=== PATIENT | male | born 1990 | race Caucasian/White ===

== ENCOUNTER 2018-09-20 05:21 | Emergency (ER) | payer SELFPAY ==
[2018-09-20] MEDS ORDERED: HYOSCYAMINE SULFATE ODT 0.125 MG TAB.SUBL SL ONE (05:34)
[2018-09-20] MEDS ORDERED: ONDANSETRON HCL IV 4 MG/2 ML VIAL IVP ONE (05:34)
--- NOTE | 2018-09-20 05:38 | Emergency Department Record ---
History of Present Illness - General Chief Complaint: Abdominal Pain Stated Complaint: ABDOMINAL PAIN Time Seen by Provider: 09/20/18 05:33 Source: Patient Mode of Arrival: Ambulatory Limitations: No limitations - History of Present Illness Initial Comments: 28 yo male presents to ED for evaluation of nausea, vomiting, and loose stools that began 5.5 hours ago. Patient reports fever at home this morning, denies any recent ill contacts. Patient denies previous abdominal surgery but does report previous episodes of pancreatitis. MD Complaint: Abdominal pain Onset/Timin -: Minutes(s) Location: Diffuse Radiation: None Migration to: No migration Severity scale (1-10): 9 Quality: Cramping, Stabbing Consistency: Constant Improves With: Nothing Worsens With: Nothing Associated Symptoms: Diarrhea, Nausea, Vomiting - Related Data Previous Rx's Medication Instructions Recorded Hyoscyamine Sulfate [Levsin-Sl] 0.25 mg SL Q8H PRN #15 tab.subl 09/20/18 Metronidazole [Flagyl] 500 mg PO TID #29 tablet 09/20/18 Ondansetron [Zofran Odt] 4 mg PO Q8H PRN #15 tab.rapdis 09/20/18 Allergies Allergy/AdvReac Type Severity Reaction Status Date / Time ciprofloxacin [From Cipro] Allergy HIVES Verified 10/14/15 11:26 ciprofloxacin HCl Allergy HIVES Verified 10/14/15 11:26 [From Cipro] Travel Screening - Travel/Exposure Within Last 30 Days Have you traveled within the last 30 days?: No Review of Systems Constitutional: Denies: Chills, Fever, Malaise, Night sweats Eyes: Denies: Eye discharge, Eye pain ENT: Denies: Congestion, Ear pain, Epistaxis Respiratory: Denies: Cough, Dyspnea Cardiovascular: Denies: Chest pain, Dyspnea on exertion Endocrine: Denies: Fatigue, Heat or cold intolerance Gastrointestinal: Reports: Abdominal pain, Diarrhea, Nausea, Vomiting Genitourinary: Denies: Incontinence, Retention Musculoskeletal: Denies: Arthralgia, Back pain, Gout, Joint swelling Skin: Denies: Bruising, Change in color Neurological: Denies: Abnormal gait, Confusion, Headache, Seizure Psychiatric: Denies: Anxiety Hematological/Lymphatic: Denies: Anemia, Blood Clots Past Medical History - SOCIAL HISTORY Smoking Status: Light tobacco smoker (<10/day) Alcohol Use: None Drug Use: None - RESPIRATORY Hx Respiratory Disorders: No - CARDIOVASCULAR Hx Cardio Disorders: No - NEURO Hx Neuro Disorders: No - GI Hx GI Disorders: Yes Hx Pancreatitis: Yes - Hx Genitourinary Disorders: No - ENDOCRINE Hx Endocrine Disorders: No - MUSCULOSKELETAL Hx Musculoskeletal Disorders: No - PSYCH Hx Psych Problems: No - HEMATOLOGY/ONCOLOGY Hx Hematology/Oncology Disorders: No Family Medical History Any Significant Family History?: Yes Hx Cancer: Father Hx HTN: Mother Hx Kidney Disease: Father Physical Exam - General General Appearance: Alert, Oriented x3, Cooperative, Mild distress, Anxious Limitations: No limitations - Head Head exam: Atraumatic, Normocephalic, Normal inspection Head exam detail: negative: Abrasion, Contusion, Jeffries's sign, General tenderness, Hematoma, Laceration - Eye Eye exam: Normal appearance. negative: Conjunctival injection, Periorbital swelling, Periorbital tenderness, Scleral icterus - ENT Ear exam: negative: Auricular hematoma, Auricular trauma Nasal Exam: negative: Active bleeding, Discharge, Dried blood, Foreign body Mouth exam: negative: Drooling, Laceration, Muffled voice, Tongue elevation - Neck Neck exam: Normal inspection. negative: Meningismus, Tenderness - Respiratory Respiratory exam: Normal lung sounds bilaterally. negative: Rales, Respiratory distress, Rhonchi, Stridor - Cardiovascular Cardiovascular Exam: Regular rate, Normal rhythm, Normal heart sounds - GI/Abdominal GI/Abdominal exam: Soft, Tenderness (Mild diffuse TTP, no rebound, guarding, or peritoneal signs are present on examination.). negative: Rebound, Rigid - Rectal Rectal exam: Deferred - exam: Deferred - Extremities Extremities exam: Normal inspection. negative: Pedal edema, Tenderness - Back Back exam: Denies: CVA tenderness (R), CVA tenderness (L) - Neurological Neurological exam: Alert, Normal gait, Oriented X3 - Psychiatric Psychiatric exam: Normal affect, Normal mood - Skin Skin exam: Normal color. negative: Abrasion Type of lesion: negative: abrasion Course Vital Signs 09/20/18 05:27 Temperature 97.7 F Pulse Rate [ 66 Pulse Ox Probe] Respiratory 20 Rate Blood Pressure 126/74 [Left Arm] Pulse Ox 99 - Reevaluation(s) Reevaluation #1: 09/20/18 06:10 Laboratory studies were reviewed: WBC 16.9 with 87% Neutrophils Labs are otherwise grossly unremarkable for an acute process. Reevaluation #2: 09/20/18 06:35 Urinalysis was reviewed and appears grossly unremarkable for an acute process. Reevaluation #3: 09/20/18 07:02 Patient was reassessed and reports improvement in his pain symptoms following Toradol administration. CT Abdomen and Pelvis pending. Reevaluation #4: 09/20/18 07:18 CT Abdomen and pelvis: Bowel wall thickening of the left casa-colon c/w colitis No fat stranding present No free intraperitoneal air/fluid No loculated fluid collection. Patient was updated on all results, will initiate treatment with Flagyl, Zofran , and Levsin as directed (patient reports hives with quinolones). Patient and his are in agreement with the plan of care as discussed. Medical Decision Making - Lab Data Result diagrams: 09/20/18 05:30 09/20/18 05:30 Disposition Disposition: Discharge Clinical Impression: Nausea vomiting and diarrhea, Colitis Disposition: Home, Self-Care Condition: (2) Stable Instructions: Acute Nausea and Vomiting (ED) Additional Instructions: Return to ED if your symptoms worsen or if you have any concerns. Flagyl, Zofran, and Levsin as directed. Follow-up with your family doctor in 3-5 days as directed. Prescriptions: Hyoscyamine Sulfate [Levsin-Sl] 0.25 mg SL Q8H PRN #15 tab.subl PRN Reason: Abdominal Pain Metronidazole [Flagyl] 500 mg PO TID #29 tablet Ondansetron [Zofran Odt] 4 mg PO Q8H PRN #15 tab.rapdis PRN Reason: Nausea/Vomiting Forms: Patient Portal Access Time of Disposition: 07:21 Quality - Quality Measures Quality Measures: N/A - Blood Pressure Screening Does Patient Have Any of the Following: No Blood Pressure Classification: Normal BP Reading Systolic Measurement: 117 Diastolic Measurement: 64 Screening for High Blood Pressure: < Normal BP, F/U Not Required > [G8783]
[2018-09-20 05:43] LABS: BASO % 0.1 % (0-6); EOS % 1.5 % (0-6); HEMATOCRIT 47.4 % (42.0-52.0); HEMOGLOBIN 16.9 gm/dl (14.0-18.0); LYMPH % 2.6 % (16-45); MEAN CELL VOLUME 86.7 fl (81-97); MEAN CORPUSCULAR HEMOGLOBIN 30.9 pg (27-33); MEAN CORPUSCULAR HGB CONC 35.7 g/dl (32-36); MEAN PLATELET VOLUME 8.9 fl (7.4-10.4); MONO % 5.2 % (0-9); PLATELET COUNT 330 K/uL (130-400); RED BLOOD COUNT 5.47 M/uL (4.40-5.70); RED CELL DISTRIBUTION WIDTH 12.8 % (11.5-14.5); WHITE BLOOD COUNT W/O DIFF 16.9 K/uL (4.2-12.2)
[2018-09-20] MEDS ORDERED: 0.9 % SODIUM CHLORIDE 1000ML 1,000 ML IV SCH (05:45)
[2018-09-20 06:03] LABS: BLOOD UREA NITROGEN 20 mg/dL (6-20); CREATININE 0.8 mg/dL (0.7-1.2); EST GLOMERULAR FILTRATION RATE > 60 mL/min; TOTAL PROTEIN 7.7 g/dL (6.6-8.7)
[2018-09-20 06:05] LABS: GLUCOSE,RANDOM 105 mg/dL (74-109)
[2018-09-20 06:08] LABS: ALB/GLOB RATIO 1.8 (1.1-1.8); ALBUMIN 4.9 g/dL (4.0-5.0); ALKALINE PHOSPHATASE 97 U/L (40-129); ALT/SGPT 24 U/L (<41); AST/SGOT 28 U/L (10.0-50.0); LIPASE 57 U/L (13-60)
[2018-09-20] MEDS ORDERED: KETOROLAC 30 MG/ML VIAL IVP ONE (06:20)
[2018-09-20 06:30] LABS: URINE APPEARANCE CLEAR; URINE BILIRUBIN NEGATIVE (NEGATIVE); URINE BLOOD NEGATIVE (NEGATIVE); URINE COLOR YELLOW; URINE GLUCOSE (UA) NEGATIVE (NEGATIVE); URINE KETONE NEGATIVE (NEGATIVE); URINE LEUKOCYTE ESTERASE NEGATIVE (NEGATIVE); URINE NITRITE NEGATIVE (NEGATIVE); URINE PROTEIN NEGATIVE (NEGATIVE); URINE UROBILINOGEN 0.2 E.U./dL (0.20 - 1.00)
[2018-09-20] MEDS ORDERED: METRONIDAZOLE 250 MG TABLET PO ONE (07:17)
--- NOTE | 2018-09-20 09:41 | CT SCAN REPORT ---
DATE: 09/20/2018. EXAM: CT OF THE ABDOMEN AND PELVIS WITH CONTRAST. HISTORY: Severe abdominal pain. TECHNIQUE: Sequential axial images were obtained from the diaphragms through the ischiorectal fossa after the intravenous administration of 100 mL of Omnipaque 300 contrast material. COMPARISON: None. FINDINGS: The visualized lung bases appear normal. There are a few subcentimeter, low-density lesions in the liver. The gallbladder, pancreas, and spleen appear normal. The adrenal glands and kidneys appear normal. The small bowel appears normal. The appendix is visualized and appears normal. The colon appears normal. The urinary bladder appears normal. The osseous structures are normal. IMPRESSION: 1. NO ACUTE ABDOMINAL OR PELVIC DISEASE PROCESS. 2. SMALL HYPODENSITIES IN THE RIGHT LOBE OF THE LIVER MEASURING LESS THAN 10 MM. THESE ARE TOO SMALL TO FURTHER CHARACTERIZE; HOWEVER LIKELY REPRESENT BENIGN CYSTS OR HEMANGIOMAS. JOB NUMBER: [id number] MTDD
== END 2018-09-20 07:32 | disposition home or self-care (01) ==
LOC: ER 05:21
DX: K52.9 Noninfective gastroenteritis and colitis, unspecified (principal); R11.2 Nausea with vomiting, unspecified; R10.84 Generalized abdominal pain; F17.210 Nicotine dependence, cigarettes, uncomplicated
CPT/HCPCS: 99284 ×2; 96374; 96375; 96361; 83690; 80053; 81003; 85027; 74177; G0480; Q9967; J1980; J1885; J2405; 80320; J7030

== ENCOUNTER 2018-09-20 11:13 | Emergency (ER) | payer SELFPAY ==
[2018-09-20] MEDS ORDERED: 0.9 % SODIUM CHLORIDE 1,000 ML BAG IV ONE (11:58)
[2018-09-20] MEDS ORDERED: KETOROLAC 30 MG/ML VIAL IVP ONE (11:58)
[2018-09-20] MEDS ORDERED: PROMETHAZINE HCL 25 MG/ML VIAL IV ONE (11:58)
[2018-09-20 12:17] LABS: HEMATOCRIT 46.7 % (42.0-52.0); HEMOGLOBIN 16.3 gm/dl (14.0-18.0); MEAN CELL VOLUME 86.6 fl (81-97); MEAN CORPUSCULAR HEMOGLOBIN 30.2 pg (27-33); MEAN CORPUSCULAR HGB CONC 34.9 g/dl (32-36); PLATELET COUNT 311 K/uL (130-400); RED BLOOD COUNT 5.39 M/uL (4.40-5.70); RED CELL DISTRIBUTION WIDTH 12.7 % (11.5-14.5); WHITE BLOOD COUNT W/O DIFF 14.4 K/uL (4.2-12.2)
[2018-09-20 12:23] LABS: PLATELET ESTIMATE NORMAL (NORMAL)
[2018-09-20 12:31] LABS: TOTAL PROTEIN 7.5 g/dL (6.6-8.7)
[2018-09-20 12:33] LABS: AMYLASE 66 U/L (28-100)
[2018-09-20 12:36] LABS: ALBUMIN 4.7 g/dL (4.0-5.0); ALKALINE PHOSPHATASE 96 U/L (40-129); ALT/SGPT 19 U/L (<41); AST/SGOT 23 U/L (10.0-50.0); BILIRUBIN,DIRECT < 0.2 mg/dL (0-0.3); LIPASE 31 U/L (13-60)
[2018-09-20] MEDS ORDERED: AMPICILLIN SODIUM/SULBACTAM NA 3 G in 0.9 % SODIUM CHLORIDE 100ML 100 ML IVPB ONE (13:19)
[2018-09-20] MEDS ORDERED: HYDROMORPHONE HCL 2 MG/ML VIAL IVP ONE (13:33)
[2018-09-20 13:52] LABS: BLOOD UREA NITROGEN 19 mg/dL (6-20); CREATININE 0.8 mg/dL (0.7-1.2); EST GLOMERULAR FILTRATION RATE > 60 mL/min
[2018-09-20 13:55] LABS: GLUCOSE,RANDOM 104 mg/dL (74-109)
--- NOTE | 2018-09-20 14:36 | Emergency Department Record ---
History of Present Illness - General Chief Complaint: Recheck - Other Stated Complaint: RECHECK ABD PAIN Time Seen by Provider: 09/20/18 11:49 Source: Patient Mode of arrival: Ambulatory Limitations: No limitations - History of Present Illness Initial Comments: pt returns for his ap saying its unbearable and that he is throwing up his medication. he was here 4 hrs ago. Complaint: Other -: Hour(s) Returns Today for: Persistent/worsening pain related to initial visit Symptoms Since Prior Visit: Worsening pain Associated Symptoms: Abdominal pain, Fever, Nausea - Related Data Previous Rx's Medication Instructions Recorded Amoxicillin/Potassium Clav 1 each PO BID #14 tablet 09/20/18 [Augmentin 875Mg/125Mg] Hyoscyamine Sulfate [Levsin-Sl] 0.25 mg SL Q8H PRN #15 tab.subl 09/20/18 Metronidazole [Flagyl] 500 mg PO TID #29 tablet 09/20/18 Ondansetron [Zofran Odt] 4 mg PO Q8H PRN #15 tab.rapdis 09/20/18 Promethazine HCl [Phenergan] 25 mg RC Q12HR PRN #5 supp.rect 09/20/18 Allergies Allergy/AdvReac Type Severity Reaction Status Date / Time ciprofloxacin [From Cipro] Allergy HIVES Verified 09/20/18 11:44 ciprofloxacin HCl Allergy HIVES Verified 09/20/18 11:44 [From Cipro] Travel Screening - Travel/Exposure Within Last 30 Days Have you traveled within the last 30 days?: No Review of Systems Reviewed: No additional complaints except as noted below Constitutional: Reports: As per HPI. Denies: Chills, Fever, Malaise, Night sweats, Weakness, Weight change Eyes: Reports: As per HPI. Denies: Eye discharge, Eye pain, Photophobia, Vision change ENT: Reports: As per HPI. Denies: Congestion, Dental pain, Ear pain, Epistaxis , Hearing loss, Throat pain Respiratory: Reports: As per HPI. Denies: Cough, Dyspnea, Hemoptysis, Stridor, Wheezes Cardiovascular: Reports: As per HPI. Denies: Arrhythmia, Chest pain, Dyspnea on exertion, Edema, Murmurs, Orthopnea, Palpitations, Paroxysmal nocturnal dyspnea, Rheumatic Fever, Syncope Endocrine: Reports: As per HPI. Denies: Fatigue, Heat or cold intolerance, Polydipsia, Polyuria Gastrointestinal: Reports: As per HPI. Denies: Abdominal pain, Constipation, Diarrhea, Hematemesis, Hematochezia, Melena, Nausea, Vomiting Genitourinary: Reports: As per HPI. Denies: Dysuria, Frequency, Hematuria, Incontinence, Retention, Testicular pain, Testicular mass, Urgency Musculoskeletal: Reports: As per HPI. Denies: Arthralgia, Back pain, Gout, Joint swelling, Myalgia, Neck pain Skin: Reports: As per HPI. Denies: Bruising, Change in color, Change in hair/ nails, Lesions, Pruritus, Rash Neurological: Reports: As per HPI. Denies: Abnormal gait, Confusion, Headache, Numbness, Paresthesias, Seizure, Tingling, Tremors, Vertigo, Weakness Psychiatric: Reports: As per HPI. Denies: Anxiety, Auditory hallucinations, Depression, Homicidal thoughts, Suicidal thoughts, Visual hallucinations Hematological/Lymphatic: Reports: As per HPI. Denies: Anemia, Blood Clots, Easy bleeding, Easy bruising, Swollen glands Past Medical History - SOCIAL HISTORY Smoking Status: Light tobacco smoker (<10/day) Alcohol Use: None Drug Use: None - RESPIRATORY Hx Respiratory Disorders: No - CARDIOVASCULAR Hx Cardio Disorders: No - NEURO Hx Neuro Disorders: No - GI Hx GI Disorders: Yes Hx Pancreatitis: Yes - Hx Genitourinary Disorders: No - ENDOCRINE Hx Endocrine Disorders: No - MUSCULOSKELETAL Hx Musculoskeletal Disorders: No - PSYCH Hx Psych Problems: No - HEMATOLOGY/ONCOLOGY Hx Hematology/Oncology Disorders: No Family Medical History Any Significant Family History?: Yes Hx Cancer: Father Hx HTN: Mother Hx Kidney Disease: Father Physical Exam - General General Appearance: Alert, Oriented x3, Cooperative, Mild distress - Head Head exam: Normal inspection - Eye Eye exam: Normal appearance, PERRL, EOMI Pupils: Normal accommodation - ENT ENT exam: Normal exam, Mucous membranes moist, Normal external ear exam, Normal orophraynx Ear exam: Normal external inspection. negative: External canal tenderness Nasal Exam: Normal inspection. negative: Discharge, Sinus tenderness Mouth exam: Normal external inspection, Tongue normal Teeth exam: Normal inspection. negative: Dental caries Throat exam: Normal inspection. negative: Tonsillar erythema, Tonsillar exudate - Neck Neck exam: Normal inspection, Full ROM. negative: Tenderness - Respiratory Respiratory exam: Normal lung sounds bilaterally. negative: Respiratory distress - Cardiovascular Cardiovascular Exam: Regular rate, Normal rhythm, Normal heart sounds - GI/Abdominal GI/Abdominal exam: Soft, Normal bowel sounds, Tenderness (diffusely) - Rectal Rectal exam: Deferred - exam: Deferred - Extremities Extremities exam: Normal inspection, Full ROM, Normal capillary refill. negative: Tenderness - Back Back exam: Reports: Normal inspection, Full ROM. Denies: Muscle spasm, Rash noted, Tenderness - Neurological Neurological exam: Alert, CN II-XII intact, Normal gait, Oriented X3 - Psychiatric Psychiatric exam: Normal affect, Normal mood - Skin Skin exam: Dry, Intact, Normal color, Warm Course Vital Signs 09/20/18 09/20/18 11:47 13:41 Temperature 98.1 F 99.0 F Pulse Rate [ 79 85 Pulse Ox Probe] Respiratory 18 18 Rate Blood Pressure 98/60 [Left Arm] Blood Pressure 110/69 [Right Arm] Pulse Ox 100 95 - Reevaluation(s) Reevaluation #1: 09/20/18 14:35 xrays neg. pt feels better Reevaluation #2: 09/20/18 14:36 pts wbc have decreased since earlier visit Medical Decision Making - Lab Data Result diagrams: 09/20/18 12:10 09/20/18 12:00 Lab Results 09/20/18 09/20/18 09/20/18 Range/Units 12:00 12:10 12:10 WBC 14.4 H (4.2-12.2) K/uL RBC 5.39 (4.40-5.70) M/uL Hgb 16.3 (14.0-18.0) gm/dl Hct 46.7 (42.0-52.0) % MCV 86.6 (81-97) fl MCH 30.2 (27-33) pg MCHC 34.9 (32-36) g/dl RDW 12.7 (11.5-14.5) % Plt Count 311 (130-400) K/uL MPV 9.0 (7.4-10.4) fl Neutrophils % 86.0 H (47-80) % Band Neutrophils % 7.0 H (0-5) % Eosinophils % Not Reportable Basophils % Not Reportable Lymphocytes 5.0 L (16-45) % Monocytes 1.0 (0-9) % Platelet Estimate Normal (NORMAL) RBC Morphology Normal Eosinophil Count 1.0 (0-6) % Sodium 144 (136-145) mmol/L Potassium 4.0 (3.4-4.5) mmol/L Chloride 103 (98-107) mmol/L Carbon Dioxide 24.0 (22-29) mmol/L Anion Gap 17.0 H (7-16) BUN 19 (6-20) mg/dL Creatinine 0.8 (0.7-1.2) mg/dL Estimated GFR > 60 mL/min Random Glucose 104 (74-109) mg/dL Lactic Acid (0.5-2.2) mmol/L Calcium 9.7 (8.6-10.0) mg/dL Total Bilirubin 0.80 (0.2-1.0) mg/dL Direct Bilirubin < 0.2 (0-0.3) mg/dL AST 23 (10.0-50.0) U/L ALT 19 (<41) U/L Alkaline Phosphatase 96 (40-129) U/L Total Protein 7.5 (6.6-8.7) g/dL Albumin 4.7 (4.0-5.0) g/dL Amylase 66 (28-100) U/L Lipase 31 (13-60) U/L 09/20/ Range/Units 12:10 WBC (4.2-12.2) K/uL RBC (4.40-5.70) M/uL Hgb (14.0-18.0) gm/dl Hct (42.0-52.0) % MCV (81-97) fl MCH (27-33) pg MCHC (32-36) g/dl RDW (11.5-14.5) % Plt Count (130-400) K/uL MPV (7.4-10.4) fl Neutrophils % (47-80) % Band Neutrophils % (0-5) % Eosinophils % Basophils % Lymphocytes (16-45) % Monocytes (0-9) % Platelet Estimate (NORMAL) RBC Morphology Eosinophil Count (0-6) % Sodium (136-145) mmol/L Potassium (3.4-4.5) mmol/L Chloride (98-107) mmol/L Carbon Dioxide (22-29) mmol/L Anion Gap (7-16) BUN (6-20) mg/dL Creatinine (0.7-1.2) mg/dL Estimated GFR mL/min Random Glucose (74-109) mg/dL Lactic Acid 1.6 (0.5-2.2) mmol/L Calcium (8.6-10.0) mg/dL Total Bilirubin (0.2-1.0) mg/dL Direct Bilirubin (0-0.3) mg/dL AST (10.0-50.0) U/L ALT (<41) U/L Alkaline Phosphatase (40-129) U/L Total Protein (6.6-8.7) g/dL Albumin (4.0-5.0) g/dL Amylase (28-100) U/L Lipase (13-60) U/L Disposition Disposition: Discharge Clinical Impression: Colitis Disposition: Home, Self-Care Condition: (1) Good Instructions: Colitis (ED) Additional Instructions: follow up with family doctor. return sooner if worse. stop flagyl. Prescriptions: Promethazine HCl [Phenergan] 25 mg RC Q12HR PRN #5 supp.rect PRN Reason: Nausea/Vomiting Amoxicillin/Potassium Clav [Augmentin 875Mg/125Mg] 1 each PO BID #14 tablet Quality - Quality Measures Quality Measures: N/A - Blood Pressure Screening Does Patient Have Any of the Following: No Blood Pressure Classification: Normal BP Reading Systolic Measurement: 98 Diastolic Measurement: 60 Screening for High Blood Pressure: < Normal BP, F/U Not Required > [G8783]
--- NOTE | 2018-09-20 16:30 | RADIOLOGY REPORT ---
DATE: 09/20/2018. EXAM: ACUTE ABDOMINAL SERIES. HISTORY: ABDOMINAL PAIN. TECHNIQUE: Single PA view of the chest and supine and upright views of the abdomen were performed. FINDINGS: Heart size is normal. Lung clements are clear. There is a nonobstructive bowel gas pattern. No evidence of free air. The osseous structures are normal IMPRESSION: NEGATIVE ACUTE ABDOMINAL SERIES. JOB NUMBER: [id number] MTDD
== END 2018-09-20 14:50 | disposition home or self-care (01) ==
LOC: ER 11:13
DX: K52.9 Noninfective gastroenteritis and colitis, unspecified (principal); R10.84 Generalized abdominal pain; R11.0 Nausea; F17.210 Nicotine dependence, cigarettes, uncomplicated
CPT/HCPCS: 99284 ×2; 96365; 96375; 83605; 82150; 83690; 80076; 80048; 85027; 74022; J0295; J1885; J1170; J2550; J7030

== ENCOUNTER 2018-12-31 02:01 | Emergency (ER) | payer SELFPAY ==
[2018-12-31] MEDS ORDERED: ONDANSETRON HCL IV 4 MG/2 ML VIAL IV ONE (02:25)
[2018-12-31] MEDS ORDERED: 0.9 % SODIUM CHLORIDE 1,000 ML BAG IV ONE (02:25)
[2018-12-31] MEDS ORDERED: KETOROLAC 30 MG/ML VIAL IVP ONE (02:25)
[2018-12-31 02:28] LABS: HEMATOCRIT 44.4 % (42.0-52.0); HEMOGLOBIN 15.7 gm/dl (14.0-18.0); MEAN CELL VOLUME 87.1 fl (81-97); MEAN CORPUSCULAR HEMOGLOBIN 30.8 pg (27-33); MEAN CORPUSCULAR HGB CONC 35.4 g/dl (32-36); MEAN PLATELET VOLUME 9.2 fl (7.4-10.4); PLATELET COUNT 347 K/uL (130-400); RED CELL DISTRIBUTION WIDTH 12.6 % (11.5-14.5); WHITE BLOOD COUNT W/O DIFF 15.7 K/uL (4.2-12.2)
[2018-12-31 02:30] LABS: BLOOD UREA NITROGEN 16 mg/dL (6-20); CREATININE 0.8 mg/dL (0.7-1.2); EST GLOMERULAR FILTRATION RATE > 60 mL/min
[2018-12-31 02:31] LABS: LIPASE 17 U/L (13-60); TOTAL PROTEIN 7.4 g/dL (6.6-8.7)
--- NOTE | 2018-12-31 02:32 | Emergency Department Record ---
History of Present Illness - General Chief Complaint: Abdominal Pain Stated Complaint: ABDOMINAL PAIN Time Seen by Provider: 12/31/18 02:15 Source: Patient Mode of Arrival: Ambulatory Limitations: No limitations - History of Present Illness Initial Comments: pt enma llq ap for a few hours unlike anything hes had before. he has nausea MD Complaint: Abdominal pain Onset/Timin -: Hour(s) Location: Periumbilical Radiation: LUQ Severity scale (1-10): 8 Quality: Cramping Consistency: Constant Improves With: Nothing Worsens With: Nothing Associated Symptoms: Nausea - Related Data Home Medications Medication Instructions Recorded Confirmed Last Taken No Home Med [NO HOME MEDS] 12/31/18 12/31/18 Unknown Allergies Allergy/AdvReac Type Severity Reaction Status Date / Time ciprofloxacin [From Cipro] Allergy HIVES Verified 09/20/18 11:44 ciprofloxacin HCl Allergy HIVES Verified 09/20/18 11:44 [From Cipro] Travel Screening - Travel/Exposure Within Last 30 Days Have you traveled within the last 30 days?: No - Travel Symptoms Symptom Screening: None Review of Systems Reviewed: No additional complaints except as noted below Constitutional: Reports: As per HPI. Denies: Chills, Fever, Malaise, Night sweats, Weakness, Weight change Eyes: Reports: As per HPI. Denies: Eye discharge, Eye pain, Photophobia, Vision change ENT: Reports: As per HPI. Denies: Congestion, Dental pain, Ear pain, Epistaxis , Hearing loss, Throat pain Respiratory: Reports: As per HPI. Denies: Cough, Dyspnea, Hemoptysis, Stridor, Wheezes Cardiovascular: Reports: As per HPI. Denies: Arrhythmia, Chest pain, Dyspnea on exertion, Edema, Murmurs, Orthopnea, Palpitations, Paroxysmal nocturnal dyspnea, Rheumatic Fever, Syncope Endocrine: Reports: As per HPI. Denies: Fatigue, Heat or cold intolerance, Polydipsia, Polyuria Gastrointestinal: Reports: As per HPI. Denies: Abdominal pain, Constipation, Diarrhea, Hematemesis, Hematochezia, Melena, Nausea, Vomiting Genitourinary: Reports: As per HPI. Denies: Dysuria, Frequency, Hematuria, Incontinence, Retention, Testicular pain, Testicular mass, Urgency Musculoskeletal: Reports: As per HPI. Denies: Arthralgia, Back pain, Gout, Joint swelling, Myalgia, Neck pain Skin: Reports: As per HPI. Denies: Bruising, Change in color, Change in hair/ nails, Lesions, Pruritus, Rash Neurological: Reports: As per HPI. Denies: Abnormal gait, Confusion, Headache, Numbness, Paresthesias, Seizure, Tingling, Tremors, Vertigo, Weakness Psychiatric: Reports: As per HPI. Denies: Anxiety, Auditory hallucinations, Depression, Homicidal thoughts, Suicidal thoughts, Visual hallucinations Hematological/Lymphatic: Reports: As per HPI. Denies: Anemia, Blood Clots, Easy bleeding, Easy bruising, Swollen glands Past Medical History - SOCIAL HISTORY Smoking Status: Light tobacco smoker (<10/day) - RESPIRATORY Hx Respiratory Disorders: No - CARDIOVASCULAR Hx Cardio Disorders: No - NEURO Hx Neuro Disorders: No - GI Hx GI Disorders: Yes Hx Pancreatitis: Yes - Hx Genitourinary Disorders: No - ENDOCRINE Hx Endocrine Disorders: No - MUSCULOSKELETAL Hx Musculoskeletal Disorders: No - PSYCH Hx Psych Problems: No - HEMATOLOGY/ONCOLOGY Hx Hematology/Oncology Disorders: No Family Medical History Any Significant Family History?: Yes Hx Cancer: Father Hx HTN: Mother Hx Kidney Disease: Father Physical Exam - General General Appearance: Alert, Oriented x3, Cooperative, Mild distress - Head Head exam: Normal inspection - Eye Eye exam: Normal appearance, PERRL, EOMI Pupils: Normal accommodation - ENT ENT exam: Normal exam, Mucous membranes moist, Normal external ear exam, Normal orophraynx Ear exam: Normal external inspection. negative: External canal tenderness Nasal Exam: Normal inspection. negative: Discharge, Sinus tenderness Mouth exam: Normal external inspection, Tongue normal Teeth exam: Normal inspection. negative: Dental caries Throat exam: Normal inspection. negative: Tonsillar erythema, Tonsillar exudate - Neck Neck exam: Normal inspection, Full ROM. negative: Tenderness - Respiratory Respiratory exam: Normal lung sounds bilaterally. negative: Respiratory distress - Cardiovascular Cardiovascular Exam: Regular rate, Normal rhythm, Normal heart sounds - GI/Abdominal GI/Abdominal exam: Soft, Normal bowel sounds, Tenderness - Rectal Rectal exam: Deferred - exam: Deferred - Extremities Extremities exam: Normal inspection, Full ROM, Normal capillary refill. negative: Tenderness - Back Back exam: Reports: Normal inspection, Full ROM. Denies: Muscle spasm, Rash noted, Tenderness - Neurological Neurological exam: Alert, Normal gait, Oriented X3, Reflexes normal - Psychiatric Psychiatric exam: Normal affect, Normal mood - Skin Skin exam: Dry, Intact, Normal color, Warm Course Vital Signs 12/31/18 02:06 Temperature 98.8 F Pulse Rate [ 71 Pulse Ox Probe] Respiratory 20 Rate Blood Pressure 111/74 [Left Arm] Pulse Ox 98 Medical Decision Making - Lab Data Result diagrams: 12/31/18 02:25 12/31/18 02:25 Lab Results 12/31/18 Range/Units 02:25 WBC 15.7 H (4.2-12.2) K/uL RBC 5.10 (4.40-5.70) M/uL Hgb 15.7 (14.0-18.0) gm/dl Hct 44.4 (42.0-52.0) % MCV 87.1 (81-97) fl MCH 30.8 (27-33) pg MCHC 35.4 (32-36) g/dl RDW 12.6 (11.5-14.5) % Plt Count 347 (130-400) K/uL MPV 9.2 (7.4-10.4) fl Neutrophils % 80.0 (47-80) % Band Neutrophils % 0.0 (0-5) % Eosinophils % Not Reportable Basophils % Not Reportable Lymphocytes 10.0 L (16-45) % Monocytes 10.0 H (0-9) % Basophils 0.0 (0-6) % Eosinophil Count 0.0 (0-6) % Disposition Disposition: Transfer Clinical Impression: Diverticulitis large intestine Qualifiers: Diverticulitis bleeding: without bleeding Diverticulitis complication: without perforation or abscess Qualified Code(s): K57.32 - Diverticulitis of large intestine without perforation or abscess without bleeding Disposition: Acute Care Hospital Transfer Transfer To: [facility] Reason For Transfer: needs surgeon Accepting Physician: dr blandon Time Discussed w/Accepting Physician: 05:14 Forms: Patient Portal Access Quality - Quality Measures Quality Measures: N/A - Blood Pressure Screening Does Patient Have Any of the Following: No Blood Pressure Classification: Normal BP Reading Systolic Measurement: 100 Diastolic Measurement: 56 Screening for High Blood Pressure: < Normal BP, F/U Not Required > [G8783]
[2018-12-31 02:34] LABS: GLUCOSE,RANDOM 108 mg/dL (74-109)
[2018-12-31 02:36] LABS: ALBUMIN 4.8 g/dL (4.0-5.0); ALKALINE PHOSPHATASE 94 U/L (40-129); ALT/SGPT 12 U/L (<41); AST/SGOT 17 U/L (10.0-50.0); BILIRUBIN,DIRECT < 0.2 mg/dL (0-0.3)
[2018-12-31] MEDS ORDERED: AMPICILLIN SODIUM/SULBACTAM NA 3 G in 0.9 % SODIUM CHLORIDE 100ML 100 ML IVPB ONE (04:07)
[2018-12-31] MEDS ORDERED: HYDROMORPHONE HCL 2 MG/ML VIAL IVP ONE (04:09)
[2018-12-31] MEDS ORDERED: ONDANSETRON HCL IV 4 MG/2 ML VIAL IVP ONE (05:30)
--- NOTE | 2018-12-31 21:41 | CT SCAN REPORT ---
EXAM: CT SCAN ABDOMEN/PELVIS WO CONTRAST HISTORY: LEFT LOWER QUADRANT PAIN. TECHNIQUE: Sequential axial images were obtained from the diaphragms through the ischiorectal fossa without intravenous contrast administration. FINDINGS: The visualized lung bases appear normal. The non-opacified liver, gallbladder, pancreas, and spleen appear normal. The adrenal glands appear normal. There are nonobstructing calculi in the right kidney measuring 5 mm in maximal dimension. No calculi are appreciated along the course of the ureter. Urinary bladder appears normal. The small bowel appears normal. There is a short segment of abnormal wall thickening and adjacent inflammatory change. Findings are consistent with diverticulitis in the descending colon. No loculated fluid collection to suggest abscess. The osseous structures appear normal. IMPRESSION: 1. ACUTE DIVERTICULITIS OF THE DESCENDING COLON. 2. THERE IS A NON-OBSTRUCTING CALCULUS IN THE RIGHT KIDNEY MEASURING 5 MM. 3. THE REMAINDER OF THE EXAMINATION IS UNREMARKABLE. JOB NUMBER: [id number] MTDD
== END 2018-12-31 05:39 | disposition short-term general hospital (02) ==
LOC: ER 02:01
DX: K57.32 Diverticulitis of large intestine without perforation or abscess without bleeding (principal); R11.0 Nausea; F17.210 Nicotine dependence, cigarettes, uncomplicated
CPT/HCPCS: 99285 ×2; 96376; 96365; 96375; 83690; 80076; 80048; 85027; 74176; J0295; J1885; J2405; J1170; J7030

== ENCOUNTER 2019-08-25 18:14 | Emergency (ER) | payer MEDICAID ==
[2019-08-25] MEDS ORDERED: 0.9 % SODIUM CHLORIDE 1,000 ML BAG IV ONE (18:51)
[2019-08-25] MEDS ORDERED: HYDROMORPHONE HCL 2 MG/ML VIAL IVP ONE (18:52)
[2019-08-25] MEDS ORDERED: ONDANSETRON HCL IV 4 MG/2 ML VIAL IVP ONE ×2 (18:52→20:38)
--- NOTE | 2019-08-25 19:01 | Emergency Department Record ---
History of Present Illness - General Chief Complaint: Abdominal Pain Stated Complaint: ABD PAIN Time Seen by Provider: 08/25/19 18:51 Source: Patient Mode of Arrival: Ambulatory Limitations: No limitations - History of Present Illness Initial Comments: 29 yo male presents with left lower abdominal pain for the last four days. The pain was initially coming and going but it is now constant. The pain remains only on the left. He has had prior diverticulitis. This feels very similar. He has associated nausea and some vomiting. He reports a few loose stools as well. MD Complaint: Abdominal pain Onset/Timin -: Days(s) Location: LUQ Radiation: Back, L flank Quality: Dull, Stabbing Improves With: Nothing Worsens With: Nothing Associated Symptoms: Diarrhea, Nausea, Vomiting - Related Data Previous Rx's Medication Instructions Recorded Amoxicillin/Potassium Clav 1 tab PO BID #14 tab 08/25/19 [Augmentin 875-125 Tablet] Allergies Allergy/AdvReac Type Severity Reaction Status Date / Time ciprofloxacin [From Cipro] Allergy HIVES Verified 08/25/19 18:35 ciprofloxacin HCl Allergy HIVES Verified 08/25/19 18:35 [From Cipro] Travel Screening - Travel/Exposure Within Last 30 Days Have you traveled within the last 30 days?: No - Travel/Exposure Within Last Year Have you traveled outside the [place] in the last year?: No - Additonal Travel Details Have you been exposed to anyone with a communicable illness?: No - Travel Symptoms Symptom Screening: None Review of Systems Constitutional: Denies: Chills, Fever, Malaise, Weakness Eyes: Denies: Eye discharge ENT: Denies: Congestion Respiratory: Denies: Cough, Dyspnea Cardiovascular: Denies: Chest pain Endocrine: Denies: Fatigue Gastrointestinal: Reports: Abdominal pain, Diarrhea, Nausea, Vomiting. Denies: Hematemesis, Hematochezia Genitourinary: Denies: Dysuria, Frequency, Hematuria Musculoskeletal: Denies: Arthralgia, Back pain, Myalgia Skin: Denies: Bruising, Change in color, Rash Neurological: Denies: Headache Psychiatric: Denies: Anxiety Hematological/Lymphatic: Denies: Easy bleeding, Easy bruising Past Medical History - SOCIAL HISTORY Smoking Status: Former smoker Alcohol Use: Occasional Drug Use: Occasional Drug Use Detail:: Marijuana - RESPIRATORY Hx Respiratory Disorders: No - CARDIOVASCULAR Hx Cardio Disorders: No - NEURO Hx Neuro Disorders: No - GI Hx GI Disorders: Yes Hx Diverticulitis: Yes Hx Pancreatitis: Yes - Hx Genitourinary Disorders: No - ENDOCRINE Hx Endocrine Disorders: No - MUSCULOSKELETAL Hx Musculoskeletal Disorders: No - PSYCH Hx Psych Problems: No - HEMATOLOGY/ONCOLOGY Hx Hematology/Oncology Disorders: No Family Medical History Any Significant Family History?: No Hx Cancer: Father Hx HTN: Mother Hx Kidney Disease: Father Physical Exam - General General Appearance: Alert, Oriented x3, Cooperative, No acute distress Limitations: No limitations - Head Head exam: Atraumatic, Normal inspection - Eye Eye exam: Normal appearance, PERRL. negative: Conjunctival injection, Scleral icterus - ENT ENT exam: Normal exam Ear exam: Normal external inspection Nasal Exam: Normal inspection Mouth exam: Normal external inspection - Neck Neck exam: Normal inspection - Respiratory Respiratory exam: Normal lung sounds bilaterally - Cardiovascular Cardiovascular Exam: Regular rate, Normal rhythm, Normal heart sounds - GI/Abdominal GI/Abdominal exam: Soft, Guarding (LLQ. Otherwise the abdomen is very soft), Tenderness (LLQ) - Rectal Rectal exam: Deferred - exam: Deferred - Extremities Extremities exam: Normal inspection - Back Back exam: Denies: CVA tenderness (R), CVA tenderness (L) - Neurological Neurological exam: Alert, Oriented X3 - Psychiatric Psychiatric exam: Normal affect, Normal mood - Skin Skin exam: Dry, Intact, Normal color, Warm Course Vital Signs 08/25/19 18:27 Temperature 97.5 F L Pulse Rate 69 Respiratory 16 Rate Blood Pressure 131/78 Pulse Ox 100 - Reevaluation(s) Reevaluation #1: 08/25/19 20:09 The labs were reviewed No acute changes of the CBC, CMP, UA were reviewed. No acute abnormalities. 08/25/19 20:52 No abnormal vitals on initial or recheck No fever or tachycardia in the ED 08/25/19 21:[address] scan was reviewed. No acute process. 2mm N/O right renal stone. Mild sigmoid diverticulosis with diverticulitis. The results were discussed. Clinically this may represent early diverticulitis based on history and examination. I recommend close follow up with the option of Augmentin. We discussed at length close follow with a PCP. Medical Decision Making - Lab Data Result diagrams: 08/25/19 18:58 08/25/19 18:58 Disposition Disposition: Discharge Clinical Impression: Left lower quadrant abdominal pain Disposition: Home, Self-Care Condition: (1) Good Instructions: Abdominal Pain (ED) Additional Instructions: Review this ER visit and the tests performed with your family doctor Call your doctor for the next available follow up appointment Return to the ER for a recheck if worse, any new concerns or questions Take the prescriptions provided as directed Prescriptions: Amoxicillin/Potassium Clav [Augmentin 875-125 Tablet] 1 tab PO BID #14 tab Referrals: SHAYNE KELLEY [MEDICAL DOCTOR] - JERMAINE LEDESMA [DOCTOR OF OSTEOPATH] - [facility] [Provider Group] Forms: Patient Portal Access Time of Disposition: 21:09 Quality - Quality Measures Quality Measures: N/A - Blood Pressure Screening Does Patient Have Any of the Following: No Blood Pressure Classification: Pre-Hypertensive BP Reading Systolic Measurement: 131 Diastolic Measurement: 78 Screening for High Blood Pressure: < Pre-Hypertensive BP, F/U Documented > [G8950] Pre-Hypertensive Follow-up Interventions: Referral to alternative/primary care provider.
[2019-08-25 19:06] LABS: ABSOLUTE NEUTROPHIL COUNT 7.06; BASO % 0.4 % (0-6); EOS % 1.8 % (0-6); GRAN % 68.7 % (47-80); HEMATOCRIT 44.5 % (42.0-52.0); HEMOGLOBIN 15.3 gm/dl (14.0-18.0); LYMPH % 21.4 % (16-45); MEAN CELL VOLUME 86.6 fl (81-97); MEAN CORPUSCULAR HEMOGLOBIN 29.8 pg (27-33); MEAN CORPUSCULAR HGB CONC 34.4 g/dl (32-36); MEAN PLATELET VOLUME 8.8 fl (7.4-10.4); MONO % 7.7 % (0-9); PLATELET COUNT 375 K/uL (130-400); RED BLOOD COUNT 5.14 M/uL (4.40-5.70); RED CELL DISTRIBUTION WIDTH 12.8 % (11.5-14.5); WHITE BLOOD COUNT W/O DIFF 10.3 K/uL (4.2-12.2)
[2019-08-25 19:16] LABS: BLOOD UREA NITROGEN 22 mg/dL (6-20); CREATININE 0.9 mg/dL (0.7-1.2); EST GLOMERULAR FILTRATION RATE > 60 mL/min; LIPASE 24 U/L (13-60); TOTAL PROTEIN 7.1 g/dL (6.6-8.7)
[2019-08-25 19:18] LABS: GLUCOSE,RANDOM 95 mg/dL (74-109)
[2019-08-25 19:21] LABS: ALBUMIN 4.7 g/dL (4.0-5.0); ALKALINE PHOSPHATASE 95 U/L (40-129); ALT/SGPT 34 U/L (<41); AST/SGOT 41 U/L (10.0-50.0)
[2019-08-25 19:40] LABS: URINE APPEARANCE CLEAR; URINE BILIRUBIN NEGATIVE (NEGATIVE); URINE BLOOD NEGATIVE (NEGATIVE); URINE COLOR YELLOW; URINE GLUCOSE (UA) NEGATIVE (NEGATIVE); URINE KETONE NEGATIVE (NEGATIVE); URINE LEUKOCYTE ESTERASE NEGATIVE (NEGATIVE); URINE NITRITE NEGATIVE (NEGATIVE); URINE PROTEIN NEGATIVE (NEGATIVE); URINE UROBILINOGEN 0.2 E.U./dL (0.20 - 1.00)
[2019-08-25] MEDS ORDERED: KETOROLAC 30 MG/ML VIAL IVP ONE (20:37)
--- NOTE | 2019-08-25 21:02 | CT SCAN REPORT ---
EXAMINATION: CT Abdomen and Pelvis with IV Contrast EXAM DATE: 08/25/2019 8:41 PM TECHNIQUE: CT imaging of the abdomen and pelvis was performed with intravenous contrast. Coronal and sagittal images were reconstructed. IV Contrast: The amount and type of contrast are recorded in the medical record. INDICATION: LLQ pain, hx of diverticulitis COMPARISON: Abdomen pelvis CT 12/31/2018 ENCOUNTER: Not applicable CT ABDOMEN AND PELVIS FINDINGS: Lung Bases: Included extent of the lung bases are clear. Hepatobiliary: The liver has a normal size with a smooth surface. The hepatic and portal veins appear patent. Normal gallbladder. Pancreas: The pancreas is normal. Spleen: The spleen is not enlarged. Adrenals: The adrenal glands are normal. Kidneys, Ureters, & Bladder: Both kidneys have a normal size and there is no hydronephrosis. 2 nonobs tructing 2 mm calculi in the upper pole of the right kidney. Both ureters have a normal caliber and t he urinary bladder is unremarkable. Gastrointestinal: The stomach and small bowel are normal with no obstruction or inflammation. Normal appendix. Mild sigmoid colon diverticulosis without acute diverticulitis. Reproductive Organs: Unremarkable Lymphatic System: There is no adenopathy within the abdomen or pelvis. Vasculature: Normal caliber abdominal aorta. Peritoneum: No free fluid, free air, or inflammation Abdominal Wall & Musculoskeletal: No suspicious bone lesions. IMPRESSION: 1. Mild colonic diverticulosis. No acute inflammatory process of the abdomen or pelvis. 2. Nephrolithiasis on the right. No hydronephrosis. 3. Normal appendix. Dictated by: Dagoberto Jimenes MD on 08/25/2019 8:54 PM. .
[2019-08-25] MEDS ORDERED: HYDROCODONE/APAP 5/325MG TABLET PO ONE (21:06)
[2019-08-25] MEDS ORDERED: AMOXICILLIN/POTASSIUM CLAV 875MG/125MG TABLET PO STA (21:08)
== END 2019-08-25 21:26 | disposition home or self-care (01) ==
LOC: ER 18:14
DX: R10.32 Left lower quadrant pain (principal); R11.2 Nausea with vomiting, unspecified
CPT/HCPCS: 74177; 80053; 81003; 83690; 85025; 99284; J1885; J2405; J7030

== ENCOUNTER 2019-10-26 11:49 | Emergency (ER) | payer MEDICAID ==
[2019-10-26] MEDS ORDERED: IBUPROFEN 600 MG TABLET PO ONE (11:59)
[2019-10-26] MEDS ORDERED: ACETAMINOPHEN 500 MG TABLET PO ONE (11:59)
--- NOTE | 2019-10-26 12:09 | Emergency Department Record ---
History of Present Illness - General Chief complaint: Pain Stated complaint: PAIN ALL OVER Time Seen by Provider: 10/26/19 11:54 Source: Patient Mode of Arrival: Ambulatory Limitations: No limitations - History of Present Illness Initial comments: 29 yo male presents with about two days of body aches and chills. He does not think he has had a fever but he has not taken his fever. He denies headaches, sore throat, or significant cough. No abdominal pain. His back and extremity muscles hurt. No rash. No swollen glands. He did not have a flu shot this year. He is normally very healthy. He is not on any medications and denies any chronic disease history. He has had some nausea and vomiting yesterday. Non today. No diarrhea. MD Complaint: Diffuse -: Days(s) Location: Other (all over) -: Yes Myalgia Radiation: Proximal, Distal Quality: Aching Consistency: Constant Improves with: Rest Worsens with: Palpation, Walking, Weight bearing Associated Symptoms: Other - Related Data Home Medications Medication Instructions Recorded Confirmed Last Taken No Home Med [NO HOME MEDS] 10/26/19 10/26/19 Unknown Allergies Allergy/AdvReac Type Severity Reaction Status Date / Time ciprofloxacin [From Cipro] Allergy HIVES Verified 10/26/19 11:56 ciprofloxacin HCl Allergy HIVES Verified 10/26/19 11:56 [From Cipro] Review of Systems Constitutional: Reports: Chills. Denies: Fever, Malaise Eyes: Denies: Eye discharge, Eye pain, Photophobia, Vision change ENT: Denies: Congestion, Ear pain, Throat pain Respiratory: Denies: Cough, Dyspnea, Stridor, Wheezes Cardiovascular: Denies: Chest pain, Dyspnea on exertion, Edema, Palpitations, Syncope Endocrine: Reports: Fatigue. Denies: Polydipsia, Polyuria Gastrointestinal: Reports: Nausea, Vomiting. Denies: Abdominal pain, Constipation, Diarrhea, Hematemesis, Hematochezia, Melena Genitourinary: Denies: Dysuria, Frequency, Hematuria Musculoskeletal: Reports: Back pain, Myalgia. Denies: Joint swelling Skin: Denies: Bruising, Change in color, Rash Neurological: Denies: Headache Psychiatric: Denies: Anxiety Hematological/Lymphatic: Denies: Easy bleeding, Easy bruising Past Medical History - SOCIAL HISTORY Smoking Status: Former smoker Drug Use: Occasional Drug Use Detail:: Marijuana - RESPIRATORY Hx Respiratory Disorders: No - CARDIOVASCULAR Hx Cardio Disorders: No - NEURO Hx Neuro Disorders: No - GI Hx GI Disorders: Yes Hx Diverticulitis: Yes Hx Pancreatitis: Yes - Hx Genitourinary Disorders: No - ENDOCRINE Hx Endocrine Disorders: No - MUSCULOSKELETAL Hx Musculoskeletal Disorders: No - PSYCH Hx Psych Problems: No - HEMATOLOGY/ONCOLOGY Hx Hematology/Oncology Disorders: No Family Medical History Hx Cancer: Father Hx HTN: Mother Hx Kidney Disease: Father Physical Exam - General General Appearance: Alert, Oriented x3, Cooperative, No acute distress Limitations: No limitations - Head Head exam: Atraumatic, Normal inspection - Eye Eye exam: Normal appearance, PERRL. negative: Conjunctival injection, Scleral icterus - ENT ENT exam: Normal exam, Mucous membranes moist Ear exam: Normal external inspection Nasal Exam: Normal inspection Mouth exam: Normal external inspection Teeth exam: Normal inspection Throat exam: Normal inspection. negative: Tonsillar erythema, Tonsillomegaly, Tonsillar exudate, R peritonsillar mass, L peritonsillar mass - Neck Neck exam: Normal inspection, Full ROM. negative: Lymphadenopathy, Meningismus, Tenderness - Respiratory Respiratory exam: Normal lung sounds bilaterally. negative: Chest wall tenderness, Prolonged expiratory, Respiratory distress, Rhonchi, Stridor, Wheezes - Cardiovascular Cardiovascular Exam: Regular rate, Normal rhythm, Normal heart sounds. negative: Diastolic murmur, Systolic murmur Peripheral Pulses: 2+: Radial (R), Radial (L) - GI/Abdominal GI/Abdominal exam: Soft, Other (Abdomen is very soft and non tender). negative: Distended, Guarding, Rebound, Rigid, Tenderness - Rectal Rectal exam: Deferred - exam: Deferred - Extremities Extremities exam: Normal inspection, Calf tenderness, Full ROM, Tenderness. negative: Joint swelling, Pedal edema - Back Back exam: Reports: CVA tenderness (R), CVA tenderness (L), Tenderness - Neurological Neurological exam: Alert, Oriented X3 - Psychiatric Psychiatric exam: Normal affect, Normal mood - Skin Skin exam: Dry, Intact, Normal color, Warm Course - Reevaluation(s) Reevaluation #1: 10/26/19 12:27 The UA is negative for blood or infection He has known renal stones that are very small (2mm) He has some ketones. I offered IV hydration. He states his nausea is gone and he would like to hydrate orally without IV He is ready for DC. His vitals are normal. His still likely has a viral process. I recommended supportive home care and rest We discussed a 24-48 return if not better Disposition Disposition: Discharge Clinical Impression: Viral syndrome Disposition: Home, Self-Care Condition: (1) Good Instructions: Viral Syndrome (ED) Additional Instructions: Call your doctor for the next available follow up appointment Return to the ER for a recheck immediately if worse, any new concerns or questions Tylenol and Motrin for aches Stay well hydrated! Forms: Patient Portal Access Time of Disposition: 12:29 Quality - Quality Measures Quality Measures: N/A - Blood Pressure Screening Does Patient Have Any of the Following: No Blood Pressure Classification: Pre-Hypertensive BP Reading Systolic Measurement: 137 Diastolic Measurement: 84 Screening for High Blood Pressure: < Pre-Hypertensive BP, F/U Documented > [G8950] Pre-Hypertensive Follow-up Interventions: Referral to alternative/primary care provider.
[2019-10-26 12:22] LABS: INFLUENZA A NEGATIVE (NEGATIVE); INFLUENZA B NEGATIVE (NEGATIVE)
[2019-10-26 12:23] LABS: URINE APPEARANCE CLEAR; URINE BILIRUBIN SMALL (NEGATIVE); URINE BLOOD NEGATIVE (NEGATIVE); URINE COLOR YELLOW; URINE GLUCOSE (UA) NEGATIVE (NEGATIVE); URINE KETONE 40 mg/dL (NEGATIVE); URINE LEUKOCYTE ESTERASE NEGATIVE (NEGATIVE); URINE NITRITE NEGATIVE (NEGATIVE); URINE PROTEIN NEGATIVE (NEGATIVE); URINE UROBILINOGEN 0.2 E.U./dL (0.20 - 1.00)
== END 2019-10-26 12:36 | disposition home or self-care (01) ==
LOC: ER 11:49
DX: B34.9 Viral infection, unspecified (principal); M79.18 Myalgia, other site; Z87.891 Personal history of nicotine dependence
CPT/HCPCS: 81003; 87400; 99283

== ENCOUNTER 2019-10-27 09:23 | Emergency (ER) | payer MEDICAID ==
[2019-10-27] MEDS ORDERED: ONDANSETRON HCL IV 4 MG/2 ML VIAL IV ONE (09:44)
[2019-10-27] MEDS ORDERED: 0.9 % SODIUM CHLORIDE 1,000 ML BAG IV ONE (09:44)
--- NOTE | 2019-10-27 09:45 | Emergency Department Record ---
History of Present Illness - General Chief complaint: Flu Like Symptoms Stated complaint: BODY ACHES/HERE 2/5 Time Seen by Provider: 10/27/19 09:30 Source: Patient, Family Mode of Arrival: Ambulatory Limitations: No limitations - History of Present Illness Initial comments: The patient is here due to not feeling well for 3 days. He has had body aches, nausea, vomiting, and weakness. The patient was here yesterday and had a neg Flu test and also had a UA that demonstrated mild to mod ketones. The patient was doing better at discharge but then the nausea and vomiting worsened. Now he states he cannot keep water down. There has been no cough, fever, diarrhea, or MURRAY. MD Complaint: Generalized weakness Onset/Timin -: Days(s) Location: Generalized Severity: Moderate Severity scale (1-10): 10 Quality: Aching Consistency: Constant Improves with: None Worsens with: None Context: Recent illness - Related Data Previous Rx's Medication Instructions Recorded Naproxen [Naprosyn] 500 mg PO BID #14 tablet.dr 10/27/19 Ondansetron [Zofran Odt] 4 mg SL .Q4-6H PRN #12 tab.rapdis 10/27/19 Allergies Allergy/AdvReac Type Severity Reaction Status Date / Time ciprofloxacin [From Cipro] Allergy HIVES Verified 10/27/19 09:27 ciprofloxacin HCl Allergy HIVES Verified 10/27/19 09:27 [From Cipro] Travel Screening - Travel/Exposure Within Last 30 Days Have you traveled within the last 30 days?: No - Travel/Exposure Within Last Year Have you traveled outside the [place] in the last year?: No - Additonal Travel Details Have you been exposed to anyone with a communicable illness?: No - Travel Symptoms Symptom Screening: None Review of Systems Constitutional: Reports: Malaise. Denies: Chills, Fever Eyes: Denies: Eye discharge ENT: Denies: Congestion Respiratory: Denies: Cough, Dyspnea Cardiovascular: Denies: Chest pain Endocrine: Reports: Fatigue Gastrointestinal: Reports: Nausea, Vomiting. Denies: Diarrhea Genitourinary: Denies: Hematuria Musculoskeletal: Denies: Arthralgia Neurological: Denies: Abnormal gait Past Medical History - SOCIAL HISTORY Smoking Status: Former smoker Alcohol Use: None Drug Use: Heavy Drug Use Detail:: Marijuana - RESPIRATORY Hx Respiratory Disorders: No - CARDIOVASCULAR Hx Cardio Disorders: No - NEURO Hx Neuro Disorders: No - GI Hx GI Disorders: Yes Hx Diverticulitis: Yes Hx Pancreatitis: Yes - Hx Genitourinary Disorders: No - ENDOCRINE Hx Endocrine Disorders: No - MUSCULOSKELETAL Hx Musculoskeletal Disorders: No - PSYCH Hx Psych Problems: No - HEMATOLOGY/ONCOLOGY Hx Hematology/Oncology Disorders: No Family Medical History Any Significant Family History?: Yes Hx Cancer: Father Hx HTN: Mother Hx Kidney Disease: Father Physical Exam - General General Appearance: Alert, Oriented x3, Cooperative, No acute distress - Head Head exam: Atraumatic, Normocephalic, Normal inspection - Eye Eye exam: Normal appearance, PERRL, EOMI. negative: Conjunctival injection, Periorbital tenderness - ENT Throat exam: Normal inspection. negative: Tonsillar erythema, Tonsillar exudate - Neck Neck exam: Normal inspection, Full ROM. negative: Lymphadenopathy, Meningismus, Tenderness - Respiratory Respiratory exam: Normal lung sounds bilaterally. negative: Respiratory distress - Cardiovascular Cardiovascular Exam: Regular rate, Normal rhythm, Normal heart sounds - GI/Abdominal GI/Abdominal exam: Soft, Normal bowel sounds. negative: Tenderness - Extremities Extremities exam: Normal inspection, Full ROM, Normal capillary refill, Other (The patient's thighs and lower legs are tender everywhere but the sking appears normal. ). negative: Tenderness - Back Back exam: Denies: Vertebral tenderness - Neurological Neurological exam: Alert, Normal gait. negative: Abnormal gait, Motor sensory deficit - Psychiatric Psychiatric exam: negative: Anxious Course Vital Signs 10/27/19 09:31 Temperature 99.3 F Pulse Rate 80 Respiratory 18 Rate Blood Pressure 128/80 Pulse Ox 98 - Reevaluation(s) Reevaluation #1: The patient states he is still having aching and cramping to his legs and back. There is no cough, CP, SOB, or AP at this time. I did discuss the lab results with the patient. 10/27/19 11:25 Reevaluation #2: The patient is doing better at this time. He denies any MURRAY or AP and states his leg cramping is much improved. I did discuss the lab results with the patient and the need to rest at home on Naprosyn and to use Zofran for nausea. He is to return to the ER for any worsening symptoms. 10/27/19 11:54 Medical Decision Making - Data Complexity MDM Data: Labs Ordered and/or Reviewed - Lab Data Result diagrams: 10/27/19 09:58 10/27/19 09:58 Disposition Disposition: Discharge Clinical Impression: Viral syndrome Disposition: Home, Self-Care Condition: (2) Stable Instructions: Viral Syndrome (ED) Additional Instructions: Please rest and drink plenty of fluids. Please see your family doctor for recheck next week if not better. Return to the ER for any worsening symptoms of any worsening pain, fever, or any more vomiting. Use the Zofran for nausea and Naprosyn for pain. Prescriptions: Naproxen [Naprosyn] 500 mg PO BID #14 tablet. Ondansetron [Zofran Odt] 4 mg SL .Q4-6H PRN #12 tab.rapdis PRN Reason: Nausea Forms: Patient Portal Access Time of Disposition: 11:57 Quality - Quality Measures Quality Measures: N/A - Blood Pressure Screening View Details: Yes Does Patient Have Any of the Following: No Blood Pressure Classification: Pre-Hypertensive BP Reading Systolic Measurement: 128 Diastolic Measurement: 80 Screening for High Blood Pressure: < Pre-Hypertensive BP, F/U Documented > [G8950] Pre-Hypertensive Follow-up Interventions: Referral to alternative/primary care provider.
[2019-10-27 10:03] LABS: ABSOLUTE NEUTROPHIL COUNT 9.68; HEMATOCRIT 46.4 % (42.0-52.0); HEMOGLOBIN 15.8 gm/dl (14.0-18.0); MEAN CORPUSCULAR HGB CONC 34.1 g/dl (32-36); MEAN PLATELET VOLUME 8.5 fl (7.4-10.4); PLATELET COUNT 299 K/uL (130-400); RED BLOOD COUNT 5.27 M/uL (4.40-5.70); RED CELL DISTRIBUTION WIDTH 12.6 % (11.5-14.5); WHITE BLOOD COUNT W/O DIFF 11.7 K/uL (4.2-12.2)
[2019-10-27] MEDS ORDERED: ACETAMINOPHEN 1,000 MG/100 ML BTL IVPB ONE (10:06)
[2019-10-27 10:12] LABS: BLOOD UREA NITROGEN 16 mg/dL (6-20); EST GLOMERULAR FILTRATION RATE > 60 mL/min; PLATELET ESTIMATE NORMAL (NORMAL)
[2019-10-27 10:13] LABS: LIPASE 23 U/L (13-60); TOTAL PROTEIN 7.8 g/dL (6.6-8.7)
[2019-10-27 10:15] LABS: GLUCOSE,RANDOM 111 mg/dL (74-109)
[2019-10-27 10:17] LABS: ALT/SGPT 22 U/L (<41); AST/SGOT 35 U/L (10.0-50.0)
[2019-10-27 10:18] LABS: ALBUMIN 4.5 g/dL (4.0-5.0); ALKALINE PHOSPHATASE 111 U/L (40-129); BILIRUBIN,DIRECT < 0.2 mg/dL (0-0.3)
[2019-10-27] MEDS ORDERED: KETOROLAC 30 MG/ML VIAL IVP ONE (11:02)
== END 2019-10-27 12:17 | disposition home or self-care (01) ==
LOC: ER 09:23
DX: B34.9 Viral infection, unspecified (principal); R52 Pain, unspecified; R11.2 Nausea with vomiting, unspecified; R53.1 Weakness; Z87.891 Personal history of nicotine dependence
CPT/HCPCS: 80048; 80076; 82550; 83690; 85027; 86140; 96361; 96365; 96375; 99284; J1885; J2405; J7030